=== PATIENT | male | born 1960 | race Hispanic/Latino ===

== ENCOUNTER 2017-11-27 16:10 | Emergency (ER) | payer MEDICAID, MEDICARE ==
[2017-11-27 16:10] VITALS: BMI 34.0
--- NOTE | 2017-11-27 17:32 | ED PDOC ---
HPI: General Adult Chief Complaint (Provider): Cough, Cold, Congestion History Per: Patient History/Exam Limitations: no limitations Onset/Duration Of Symptoms: Days Current Symptoms Are (Timing): Still Present Additional Complaint(s): 56 year old male presents to the ER for an evaluation of multiple complaints. Patient reports of right-side hip pain and nasal congestion. Patient was seen on the 11/07/17 in ER and had a hip x-ray performed that presented no abnormalities. Also reports of swelling on his right thumb and dark-colored urine for the past 2 days and he feels he may he dehydrated. He denies fever, shortness of breath or incontinence. PMD: Ellyn Villa <Antonia Miller - Last Filed: 11/27/17 23:14> <Dhruv Ocampo - Last Filed: 11/29/17 14:46> Time Seen by Provider: 11/27/17 16:27 Chief Complaint (Nursing): Cough, Cold, Congestion Past Medical History Reviewed: Historical Data, Nursing Documentation, Vital Signs Vital Signs: Last Vital Signs Temp 98.5 F 11/27/17 16:22 Pulse 94 H 11/27/17 16:22 Resp 16 11/27/17 16:22 BP 132/85 11/27/17 16:22 Pulse Ox 99 11/27/17 16:22 - Medical History PMH: Depression, Fractures, Hiatal Hernia, HTN, Hypercholesterolemia Denies: Chronic Kidney Disease - Surgical History Surgical History: Endoscopy, Hernia Repair - Family History Family History: States: Unknown Family Hx <Antonia Miller - Last Filed: 11/27/17 23:14> Vital Signs: Last Vital Signs Temp 98 F 11/27/17 21:08 Pulse 76 11/27/17 21:08 Resp 18 11/27/17 21:08 BP 122/70 11/27/17 21:08 Pulse Ox 99 11/27/17 23:19 <Dhruv Ocampo - Last Filed: 11/29/17 14:46> - Home Medications Home Medications: Ambulatory Orders Medication Instructions Recorded RX: Carvedilol [Coreg] 1 tab PO BID 03/16/15 RX: Losartan/Hydrochlorothiazide 1 tab PO DAILY 03/09/16 [Losartan-Hctz 100-25 mg Tab] RX: Sertraline HCl 50 mg PO HS 03/09/16 RX: Simvastatin 20 mg PO DAILY 03/09/16 RX: Clindamycin [Cleocin] 300 mg PO Q6 #28 cap 10/29/16 Cephalexin [cephalexin] 500 mg PO TID #21 cap 11/27/17 - Allergies Allergies/Adverse Reactions: Allergies Allergy/AdvReac Type Severity Reaction Status Date / Time Penicillins Allergy Intermediate RASH Verified 03/09/16 10:44 Review of Systems ROS Statement: Except As Marked, All Systems Reviewed And Found Negative Constitutional: Negative for: Fever ENT: Positive for: Other (sinus problem) Musculoskeletal: Positive for: Back Pain, Hand Pain (swollen right thumb ) Psych: Negative for: Suicidal ideation (homcidal ideation) <Antonia Miller - Last Filed: 11/27/17 23:14> Physical Exam - Reviewed Nursing Documentation Reviewed: Yes Vital Signs Reviewed: Yes - Physical Exam Appears: Positive for: Well, Non-toxic, No Acute Distress Head Exam: Positive for: ATRAUMATIC, NORMAL INSPECTION, NORMOCEPHALIC Skin: Positive for: Normal Color, Warm, Dry. Negative for: Rash Eye Exam: Positive for: Normal appearance Cardiovascular/Chest: Positive for: Regular Rate, Rhythm. Negative for: Murmur Respiratory: Positive for: Normal Breath Sounds. Negative for: Decreased Breath Sounds, Wheezing, Respiratory Distress Gastrointestinal/Abdominal: Positive for: Normal Exam, Soft. Negative for: Tenderness, Guarding, Rebound Extremity: Positive for: Normal ROM, Tenderness (tenderness and fluctuance of nail margin, (-) felon). Negative for: Deformity Neurologic/Psych: Positive for: Alert, Oriented (x3). Negative for: Motor/Sensory Deficits <Antonia Miller S - Last Filed: 11/27/17 23:14> - ECG O2 Sat by Pulse Oximetry: 99 (RA) Pulse Ox Interpretation: Normal <Antonia Miller - Last Filed: 11/27/17 23:14> Medical Decision Making Medical Decision Making: Time: 1650 --Urinalysis Under sterile technique, betadine used to clean. finger anesthetized using 1% plain lido. incision made to elevate cuticle, large purulence expressed, packing placed, bulky d/s/d applied. pt. tolerated well. UA as above, glucose noted in urine. Fingerstick done and was 122. No indication for further workup at this time . Pt. has f/u with PMD in 2 days. Scribe Attestation: Documented by Lydia Howard, acting as a scribe for Antonia Miller PA-C. Provider Scribe Attestation: All medical record entries made by the Scribe were at my direction and personally dictated by me. I have reviewed the chart and agree that the record accurately reflects my personal performance of the history, physical exam, medical decision making, and the department course for this patient. I have also personally directed, reviewed, and agree with the discharge instructions and disposition. <Antonia Miller - Last Filed: 11/27/17 23:14> Disposition - Patient ED Disposition Is Patient to be Admitted: No Counseled Patient/Family Regarding: Need For Followup - Disposition Disposition: Routine/Home Disposition Time: 20:34 <Antonia Miller - Last Filed: 11/27/17 23:14> <Dhruv Ocampo - Last Filed: 11/29/17 14:46> - Clinical Impression Clinical Impression: Paronychia, Glucosuria - Disposition Condition: STABLE Prescriptions: Cephalexin [cephalexin] 500 mg PO TID #21 cap Instructions: Paronychia (DC) Forms: [employer] (Urdu) Addendum Addendum: 11/29/17 14:46 Reviewed Pa chart and agree. <Dhruv Ocampo - Last Filed: 11/29/17 14:46>
[2017-11-27 18:22] LABS: URINE BILIRUBIN NEGATIVE (NEGATIVE); URINE BLOOD NEGATIVE (NEGATIVE); URINE CLARITY CLEAR (Clear); URINE COLOR YELLOW (YELLOW); URINE GLUCOSE (UA) >=500 mg/dL (Normal); URINE LEUKOCYTE ESTERASE NEG Leu/uL (Negative); URINE PROTEIN NEGATIVE (NEGATIVE); URINE UROBILINOGEN 0.2-1.0 mg/dL (0.2-1.0)
[2017-11-27 21:09] VITALS: BP 122/70; PULSE 76; RESP 18; TEMP 98
[2017-11-27 23:16] VITALS: O2SAT 99
== END 2017-11-27 21:08 | disposition home or self-care (01) ==
LOC: H.ER 16:10
DX: L03.011 Cellulitis of right finger (principal); R81 Glycosuria; E78.00 Pure hypercholesterolemia, unspecified; I10 Essential (primary) hypertension; Z88.0 Allergy status to penicillin

== ENCOUNTER 2018-03-11 14:07 | Emergency (ER) | payer MEDICAID ==
[2018-03-11 14:07] VITALS: BMI 34.0
[2018-03-11 14:55] VITALS: BP 128/80; PULSE 98; RESP 16; TEMP 98.2; O2SAT 98
[2018-03-11] MEDS ORDERED: Sodium Chloride 0.9% 1,000 ML IV STA ×2 (15:18→17:39)
[2018-03-11] MEDS ORDERED: Iohexol 240 (50 ml) PO ONE (15:18)
--- NOTE | 2018-03-11 15:22 | ED PDOC ---
HPI: Abdomen Time Seen by Provider: 03/11/18 15:08 Chief Complaint (Nursing): Abdominal Pain Chief Complaint (Provider): Abd pain History Per: Patient History/Exam Limitations: no limitations Onset/Duration Of Symptoms: Days (2 months) Additional Complaint(s): Pt. with abd pain lower. Diarrhea, nonbloody with it. No nausea, vomit, weakness, chest pain, dyspnea. No fever. No back pain. Seen by Dr. Bullard and sent to the ER for possible pancreas issues?. Past Medical History Reviewed: Nursing Documentation, Vital Signs Vital Signs: Last Vital Signs Temp 98.2 F 03/11/18 14:52 Pulse 98 H 03/11/18 14:52 Resp 16 03/11/18 14:52 BP 128/80 03/11/18 14:52 Pulse Ox 98 03/11/18 14:52 - Medical History PMH: Depression, Fractures, Hiatal Hernia, HTN, Hypercholesterolemia Denies: Chronic Kidney Disease - Surgical History Surgical History: Endoscopy, Hernia Repair - Family History Family History: States: Unknown Family Hx - Home Medications Home Medications: Ambulatory Orders Medication Instructions Recorded Carvedilol [Coreg] 1 tab PO BID 03/16/15 Losartan/Hydrochlorothiazide 1 tab PO DAILY 03/09/16 [Losartan-Hctz 100-25 mg Tab] Sertraline HCl 50 mg PO HS 03/09/16 Simvastatin 20 mg PO DAILY 03/09/16 Clindamycin [Cleocin] 300 mg PO Q6 #28 cap 10/29/16 Cephalexin [cephalexin] 500 mg PO TID #21 cap 11/27/17 - Allergies Allergies/Adverse Reactions: Allergies Allergy/AdvReac Type Severity Reaction Status Date / Time Penicillins Allergy Intermediate RASH Verified 03/11/18 14:52 Review of Systems ROS Statement: Except As Marked, All Systems Reviewed And Found Negative Gastrointestinal: Positive for: Abdominal Pain, Diarrhea Physical Exam - Reviewed Nursing Documentation Reviewed: Yes Vital Signs Reviewed: Yes - Physical Exam Appears: Positive for: Non-toxic, No Acute Distress Head Exam: Positive for: ATRAUMATIC, NORMAL INSPECTION, NORMOCEPHALIC Skin: Positive for: Normal Color, Warm, DRY Eye Exam: Positive for: EOMI, Normal appearance, PERRL ENT: Positive for: Normal ENT Inspection Neck: Positive for: Normal, Painless ROM Cardiovascular/Chest: Positive for: Regular Rate, Rhythm Respiratory: Positive for: CNT, Normal Breath Sounds Gastrointestinal/Abdominal: Positive for: Soft, Tenderness (lower across) Back: Positive for: Normal Inspection. Negative for: L CVA Tenderness, R CVA Tenderness Extremity: Positive for: Normal ROM Neurologic/Psych: Positive for: Alert, Oriented - Laboratory Results Result Diagrams: 03/11/18 15:00 03/11/18 15:00 - ECG O2 Sat by Pulse Oximetry: 98 Pulse Ox Interpretation: Normal - Progress ED Course And Treament: 1848: Stable. Dr. Rollins to take over care. FU on ct. Disposition - Clinical Impression Clinical Impression: Abdominal pain - Patient ED Disposition Is Patient to be Admitted: Transfer of Care - Disposition Disposition Time: 18:48 Condition: STABLE Patient Signed Over To: Debbie Rollins
[2018-03-11 15:50] LABS: BASO % 0.8 % (0.0-2.0); EOS # 0.1 K/uL (0.0-0.7); EOS % 2.6 % (0.0-4.0); LYMPH # 1.8 K/uL (1.0-4.3); LYMPH % 30.7 % (20.0-40.0); MEAN CELL VOLUME 88.2 fl (80.0-94.0); MEAN CORPUSCULAR HGB CONC 34.1 g/dL (33.0-37.0); MEAN PLATELET VOLUME 9.4 fl (7.2-11.7); MONO # 0.3 K/uL (0.0-0.8); MONO % 5.5 % (0.0-10.0); NEUT # 3.5 K/uL (1.8-7.0); NEUT % 60.4 % (50.0-75.0); NRBC % 0.3 % (0.0-0.0); RBC 4.98 Mil/uL (4.40-5.90); WHITE BLOOD COUNT 5.8 K/uL (4.8-10.8)
[2018-03-11 15:56] LABS: PROTHROMBIN TIME 11.4 Seconds (9.8-13.1)
[2018-03-11] MEDS ORDERED: Iohexol 240 (50 ml) ONE (16:15)
[2018-03-11 16:20] LABS: ALB/GLOB RATIO 1.2 (1.0-2.1); ALBUMIN 3.9 g/dL (3.5-5.0); ALT/SGPT 27 U/L (21-72); AST/SGOT 28 U/L (17-59); BLOOD UREA NITROGEN 10 mg/dl (9-20); CALCIUM 9.1 mg/dL (8.4-10.2); GFR NON-AFRICAN AMERICAN > 60; LIPASE 579 U/L (23-300)
[2018-03-11] MEDS ORDERED: Iohexol 300 100 ML IJ ONE (17:54)
[2018-03-11] MEDS ORDERED: Sodium Chloride 0.9% 50 ML IV ONE (17:54)
--- NOTE | 2018-03-11 18:57 | CT ---
PROCEDURE: CT Abdomen and Pelvis with oral and IV contrast. HISTORY: abd pain COMPARISON: None available. TECHNIQUE: Contiguous axial images of the abdomen and pelvis. Oral and IV contrast was administered. Coronal and Sagittal reformats generated and reviewed. Contrast dose: 95 mL Omnipaque 300 IV Radiation dose: Total exam DLP = 789.92 mGy-cm. This CT exam was performed using one or more of the following dose reduction techniques: Automated exposure control, adjustment of the mA and/or kV according to patient size, and/or use of iterative reconstruction technique. FINDINGS: LOWER THORAX: No visible consolidation, pleural effusion, or pneumothorax. Small hiatal hernia. LIVER: Faint 4 mm hyper dense focus/enhancement at the hepatic dome (series 3, image 16). 14 mm focus of enhancement in the right posterior hepatic lobe (series 3, image 49). 9 mm right inferior hepatic lobe hypodensity. Additional focal hypodense regions within the medial right and left hepatic lobes. Hepatomegaly. GALLBLADDER AND BILE DUCTS: Unremarkable. PANCREAS: Unremarkable. SPLEEN: 13 mm and 12 mm probable splenules. Otherwise unremarkable. ADRENALS: Unremarkable. KIDNEYS AND URETERS: The kidneys enhance symmetrically. No hydronephrosis or obstructing renal calculus. Too small to characterize right lower pole renal hypodensity; statistically likely cyst. BLADDER: The urinary bladder appears unremarkable. REPRODUCTIVE: The prostate gland measures approximately 4.1 x 4.6 cm and contains coarse calcifications. APPENDIX: The appendix appears within normal limits of caliber. No secondary signs of acute appendicitis. BOWEL: The stomach is nondistended. The bowel loops appear within normal limits of caliber without evidence of intestinal obstruction.Colonic wall thickening, particularly transverse and rectosigmoid colon; correlate clinically for possibility of colitis. PERITONEUM: No significant free fluid. No definite free air. LYMPH NODES: No bulky lymphadenopathy identified. VASCULATURE: Mild aneurysmal dilatation of the infrarenal abdominal aorta which measures approximately 2.9 x 2.9 x 3.4 cm (AP by transverse by cc dimension). Atherosclerotic calcifications of the aorta. BONES: Degenerative changes. OTHER FINDINGS: Right far lateral fat containing hernia (series 3, image 66). Fat containing right inguinal hernia. IMPRESSION: Colonic wall thickening, particularly transverse and rectosigmoid colon; correlate clinically for possibility of colitis. Hepatomegaly. 4 mm hepatic dome and 14 mm posterior right hepatic lobe foci of enhancement, indeterminate. Too small to characterize 9 mm right inferior hepatic lobe hypodensity. Additional focal hypodense regions within the medial right and left hepatic lobes, possibly focal fatty infiltration. Recommend further evaluation with three-phase imaging if not previously characterized. Mild aneurysmal dilatation of the infrarenal abdominal aorta which measures approximately 2.9 x 2.9 x 3.4 cm. Enlarged prostate gland. Recommend correlation with PSA. Additional incidental findings as above.
[2018-03-11] MEDS ORDERED: Insulin Regular 100 units/ml IV STA (19:01)
--- NOTE | 2018-03-11 19:19 | ED PDOC ---
- Laboratory Results Result Diagrams: 03/11/18 15:00 03/11/18 15:00 Lab Results: PT 11.4 Seconds (9.8-13.1) 03/11/18 15:00 INR 1.0 03/11/18 15: APTT 32.0 Seconds (25.6-37.1) 03/11/18 15:00 Troponin I < 0.0120 ng/mL (0.00-0.120) 03/11/18 15:00 Total Bilirubin 0.5 mg/dl (0.2-1.3) 03/11/18 15:00 AST 28 U/L (17-59) 03/11/18 15:00 ALT 27 U/L (21-72) 03/11/18 15: Alkaline Phosphatase 94 U/L (38-126) 03/11/18 15: Total Protein 7.0 G/DL (6.3-8.2) 03/11/18 15: Albumin 3.9 g/dL (3.5-5.0) 03/11/18 15: Globulin 3.1 gm/dL (2.2-3.9) 03/11/18 15: Albumin/Globulin Ratio 1.2 (1.0-2.1) 03/11/18 15: Lipase 579 U/L (23-300) H 03/11/18 15:00 - ECG O2 Sat by Pulse Oximetry: 98 Medical Decision Making Medical Decision Making: Time: 1899 Patient was endorsed to provider from Dhruv Ocampo MD. Pending CT results. Time: 1853 FINDINGS: LOWER THORAX: No visible consolidation, pleural effusion, or pneumothorax. Small hiatal hernia. LIVER: Faint 4 mm hyper dense focus/enhancement at the hepatic dome (series 3, image 16). 14 mm focus of enhancement in the right posterior hepatic lobe (series 3, image 49). 9 mm right inferior hepatic lobe hypodensity. Additional focal hy podense regions within the medial right and left hepatic lobes. Hepatomegaly. GALLBLADDER AND BILE DUCTS: Unremarkable. PANCREAS: Unremarkable. SPLEEN: 13 mm and 12 mm probable splenules. Otherwise unremarkable. ADRENALS: Unremarkable. KIDNEYS AND URETERS: The kidneys enhance symmetrically. No hydronephrosis or obstructing renal calculus. Too small to characterize right lower pole renal hypodensity; statistically likely cyst. BLADDER: The urinary bladder appears unremarkable. REPRODUCTIVE: The prostate gland measures approximately 4.1 x 4.6 cm and contains coarse calcifications. APPENDIX: The appendix appears within normal limits of caliber. No secondary signs of acute appendicitis. BOWEL: The stomach is nondistended. The bowel loops appear within normal limits of caliber without evidence of intestinal obstruction.Colonic wall thickening, particularly transverse and rectosigmoid colon; correlate clinically for possibility of colitis. PERITONEUM: No significant free fluid. No definite free air. LYMPH NODES: No bulky lymphadenopathy identified. VASCULATURE: Mild aneurysmal dilatation of the infrarenal abdominal aorta which measures approximately 2.9 x 2.9 x 3.4 cm (AP by transverse by cc dimension). Atherosclerotic calcifications of the aorta. BONES: Degenerative changes. OTHER FINDINGS: Right far lateral fat containing hernia (series 3, image 66). Fat containing right inguinal hernia. IMPRESSION: Colonic wall thickening, particularly transverse and rectosigmoid colon; correlate clinically for possibility of colitis. Hepatomegaly. 4 mm hepatic dome and 14 mm posterior right hepatic lobe foci of enhancement, indeterminate. Too small to characterize 9 mm right inferior hepatic lobe hypodensity. Additional focal hypodense regions within the medial right and left hepatic lobes, possibly focal fatty infiltration. Recommend further evaluation with three-phase imaging if not previously characterized. Mild aneurysmal dilatation of the infrarenal abdominal aorta which measures approximately 2.9 x 2.9 x 3.4 cm. Enlarged prostate gland. Recommend correlation with PSA. Additional incidental findings as above. Time: [address] of [address] results but wants to leave. Patient will be given antibiotics and CT results. i went throughresults and he is aware of the restuls. but Brianna KLINE. Scribe Attestation: Documented by David Fagan, acting as a scribe for provider Debbie Rollins MD. All medical record entries made by the Scribe were at my direction and personally dictated by me. I have reviewed the chart and agree that the record accurately reflects my personal performance of the history, physical exam, medical decision making, and the department course for this patient. I have also personally directed, reviewed, and agree with the discharge instructions and disposition. Disposition Counseled Patient/Family Regarding: Studies Performed, Diagnosis, Need For Followup - Clinical Impression Clinical Impression: Abdominal pain, Colitis, Abnormal CT of the abdomen - POA Present On Arrival: None - Disposition Disposition: Routine/Home Disposition Time: 20:20 Condition: IMPROVED Additional Instructions: follow up with Dr Villa tomorrow and bring CT copy (see ABNORMAL FINDINGS) return to the ED with any worsening or concerning symptoms Prescriptions: Ciprofloxacin HCl [Cipro] 500 mg PO BID #20 tab Metronidazole [Flagyl] 500 mg PO TID #30 tablet Instructions: Colitis, Stomach Ache and Stomach Upset Forms: [employer] (Israeli)
== END 2018-03-11 20:23 | disposition home or self-care (01) ==
LOC: H.ER 14:07
DX: R10.30 Lower abdominal pain, unspecified (principal); K52.9 Noninfective gastroenteritis and colitis, unspecified; E78.00 Pure hypercholesterolemia, unspecified; I10 Essential (primary) hypertension; I71.4 Abdominal aortic aneurysm, without rupture; N40.0 Benign prostatic hyperplasia without lower urinary tract symptoms; Z88.0 Allergy status to penicillin; K40.90 Unilateral inguinal hernia, without obstruction or gangrene, not specified as recurrent
CPT/HCPCS: 74177; 80053; 80320; 82948; 83690; 84484; 85025; 85610; 85730; 96361; 96374; 96375; 99283; J1885; J7030; Q9966; Q9967

== ENCOUNTER 2018-07-13 13:24 | Emergency (ER) | payer MEDICAID ==
[2018-07-13 13:24] VITALS: BMI 34.0
[2018-07-13 13:43] VITALS: RESP 20
--- NOTE | 2018-07-13 14:05 | ED PDOC ---
HPI: Back Time Seen by Provider: 07/13/18 13:43 Chief Complaint (Nursing): Back Pain History Per: Patient History/Exam Limitations: no limitations Onset/Duration Of Symptoms: Days Additional Complaint(s): 57 yo M with h/o depression, present to ED for evaluation of left sided low back pain for 3 days. Pt reports he thinks he woke up with the pain and it has been constant, stayed the same in severity of pain and is not relieved by Aspirin, last dose 0900. Pt reports sitting or laying down make the pain worse. Pt denies fever, chill, numbness or tingling, non radiating pain, urinary or bowel incontinence, hematuria, heavy lifting or injury, weakness. Of note, pt reports he does feel constipated. He had a BM this morning but had to strain. Denies abdominal pain, nausea or vomiting, melena, diarrhea. PMD: Dr. Rothman Past Medical History Reviewed: Historical Data, Nursing Documentation, Vital Signs Vital Signs: Last Vital Signs Temp 98.5 F 07/13/18 13:41 Pulse 70 07/13/18 13:41 Resp 20 07/13/18 13:41 BP 109/74 07/13/18 13:41 Pulse Ox 98 07/13/18 13:41 Primary Care Provider: FAMILY PROVIDER,NO - Medical History PMH: Depression, Fractures, Hiatal Hernia, HTN, Hypercholesterolemia Denies: Chronic Kidney Disease - Surgical History Surgical History: Endoscopy, Hernia Repair - Family History Family History: States: Unknown Family Hx - Immunization History Hx Tetanus Toxoid Vaccination: No Hx Influenza Vaccination: No Hx Pneumococcal Vaccination: No - Home Medications Home Medications: Ambulatory Orders Medication Instructions Recorded Carvedilol [Coreg] 1 tab PO BID 03/16/15 Losartan/Hydrochlorothiazide 1 tab PO DAILY 03/09/16 [Losartan-Hctz 100-25 mg Tab] Sertraline HCl 50 mg PO HS 03/09/16 Simvastatin 20 mg PO DAILY 03/09/16 Clindamycin [Cleocin] 300 mg PO Q6 #28 cap 10/29/16 Cephalexin [cephalexin] 500 mg PO TID #21 cap 11/27/17 Ciprofloxacin HCl [Cipro] 500 mg PO BID #20 tab 03/11/18 Metronidazole [Flagyl] 500 mg PO TID #30 tablet 03/11/18 Cyclobenzaprine [Cyclobenzaprine 10 mg PO TID PRN #12 tab 07/13/18 HCl] Naproxen 500 mg PO BID PRN #20 tab 07/13/18 Polyethylene Glycol 3350 [Miralax] 17 gm PO HS PRN #200 gm 07/13/18 - Allergies Allergies/Adverse Reactions: Allergies Allergy/AdvReac Type Severity Reaction Status Date / Time Penicillins Allergy Intermediate RASH Verified 07/13/18 13:41 Review of Systems Constitutional: Negative for: Fever, Chills Gastrointestinal: Positive for: Constipation. Negative for: Nausea, Vomiting, Abdominal Pain, Diarrhea, Melena Genitourinary Male: Negative for: Dysuria, Hematuria Musculoskeletal: Positive for: Back Pain Neurological: Negative for: Weakness, Numbness Physical Exam - Reviewed Nursing Documentation Reviewed: Yes Vital Signs Reviewed: Yes - Physical Exam Comments: GENERAL APPEARANCE: Patient is awake, alert, oriented x 3, in no acute distress. SKIN: Warm, dry; (-) cyanosis. EYES: (-) conjunctival pallor. ENMT: Mucous membranes moist. NECK: (-) tenderness, (-) stiffness, (-) lymphadenopathy. CHEST AND RESPIRATORY: (-) rales, (-) rhonchi, (-) wheezes; breath sounds equal bilaterally. HEART AND CARDIOVASCULAR: (-) irregularity; (-) murmur, (-) gallop. ABDOMEN AND GI: Soft; (-) tenderness; (-) palpable mass. BACK: (+) left lumbar muscle tenderness, (+) mild spasm, (-) direct bony tenderness, (-) deformity. (+)FROM (-)CVAT, Straight leg raising (-) bilaterally. EXTREMITIES: (-) deformity. Distal pulses good bilaterally. NEURO AND PSYCH: Mental status as above. Intact sensation bilaterally; demonstrator sewing techniques grossly intact, strength 5/5 x4, normal strength in extension of the knees, plantar and dorsiflexion of the toes. DTRs symmetric. steady gait - ECG O2 Sat by Pulse Oximetry: 98 Medical Decision Making Medical Decision Makin:43 initial eval - left low back pain likely muscular -- Flexeril PO (pt is not driving home) -- Toradol IM -- re eval 14:50 on re eval pt reports feeling much better, pain is mostly gone now, steady gait, neurologically intact, abdomen is soft and non tender Discussed results, diagnosis, treatment, return precautions and f/u with pt who is understanding, in agreement and stable for dc Disposition - Clinical Impression Clinical Impression: Low back pain, Muscle spasm - Patient ED Disposition Is Patient to be Admitted: No Counseled Patient/Family Regarding: Studies Performed, Diagnosis, Need For Followup, Rx Given - Disposition Referrals: your, primary doctor [Other] (in 2-3 days) Disposition: Routine/Home Disposition Time: 14:51 Condition: IMPROVED Additional Instructions: Thank you for letting us take care of you today.The emergency medical care you received today was directed at your acute symptoms. If you were prescribed any medication, please fill it and take as directed. Do not drive or drink alcohol when taking flexeril. Rest, avoid heavy lifting or strenuous activity for one week. Use heating pads and hot showers to help soothe muscles. It may take several days for your symptoms to resolve. Return to the Emergency Department if your symptoms worsen, do not improve, or if you have any other problems. Please contact your doctor in 2 days for re-evaluation and follow up / or call one of the physicians/clinics you have been referred to that are listed on the Patient Visit Information form that is included in your discharge packet. Bring any paperwork you were given at discharge with you along with any medications you are taking to your follow up visit. Our treatment cannot replace ongoing medical care by a primary care provider (PCP) outside of the emergency department. Prescriptions: Cyclobenzaprine [Cyclobenzaprine HCl] 10 mg PO TID PRN #12 tab PRN Reason: muscle relaxation Naproxen 500 mg PO BID PRN #20 tab PRN Reason: Pain, Moderate (4-7) Polyethylene Glycol 3350 [Miralax] 17 gm PO HS PRN #200 gm PRN Reason: Constipation Instructions: Muscle Spasms (DC), Low Back Pain in Adults, Constipation, Adult (DC) Print Language: ROMANIAN - POA Present On Arrival: None
[2018-07-13 14:59] VITALS: BP 116/78; PULSE 75; TEMP 98.6; O2SAT 99
== END 2018-07-13 14:55 | disposition home or self-care (01) ==
LOC: H.ER 13:24
DX: M54.5 Low back pain (principal); M62.838 Other muscle spasm; I10 Essential (primary) hypertension; Z88.0 Allergy status to penicillin; Z79.899 Other long term (current) drug therapy; E78.00 Pure hypercholesterolemia, unspecified; Z86.59 Personal history of other mental and behavioral disorders
CPT/HCPCS: 96372; 99283; J1885